=== PATIENT | male | born 1995 | race Caucasian/White ===

== ENCOUNTER 2019-10-05 03:35 | Emergency (ER) | payer SELFPAY ==
[~2019-10-05] VITALS: Ht 167.6 cm; Wt 68.0 kg
[2019-10-05 03:38] VITALS: BP 131/85
--- NOTE | 2019-10-05 03:53 | NUR ---
PATIENT B[facility] PATIENT EXAMINED BY DR. KRISHNA. PATIENT MEDICALLY CLEARED AND RELEASED IN CUSTODY IN STABLE CONDITION. ORIGINAL PRE-BOOK FORM GIVEN TO OFFICER TIN
[2019-10-05 03:54] VITALS: BP 131/85
--- NOTE | 2019-10-05 03:54 | NUR ---
Patient discharged with v/s stable. Written and verbal after care instructions given and explained. Patient verbalized understanding. Police with in custody. All questions addressed prior to discharge. Advised to follow up with PMD.
== END 2019-10-05 03:54 ==
LOC: MED 03:35
DX: Z04.1 Encounter for examination and observation following transport accident (principal); Z02.89 Encounter for other administrative examinations; V89.2XXA Person injured in unspecified motor-vehicle accident, traffic, initial encounter; Y93.89 Activity, other specified; Y92.89 Other specified places as the place of occurrence of the external cause; Y99.8 Other external cause status
CPT/HCPCS: 99283